=== PATIENT | female | born 1950 | race Two or more races ===

== ENCOUNTER → 2025-02-21 | Emergency (ER) | payer OTHER ==
[~2025-02-21] VITALS: Ht 152.4 cm; Wt 48.5 kg
[~2025-02-21] MED LIST: AMOX1TAB5 PO; BENZONATATE 200 MG CAPSULE PO ONE; BENZONATATE200 M1 PO; BUSPIRONE HCL7.5 MG PO; CEFTRIAXONE SODIUM 1,000 MG VIAL IV ONE; LEVALBUTER0.63 MG/3 IH; LEVALBUTEROL HCL 1.25 MG/3 ML SOLUTION IH ONE; METHYLPREDNISOLONE SOD SUCC 125 MG VIAL IV ONE; METOPROLOL SUCC25 MG PO; MONTELUKAST SODIUM 10 MG TABLET PO ONE; PROTONIX40 MG PO; PROZAC10 MG PO; SINGULAIR10 MG PO; TRILIPIX45 MG PO; WELLBUTRIN SR100 MG PO
[2025-02-21 10:52] LABS: BASO % 0.6 % (0.1-1.2); EOS # 0.15 (0.04-0.54); EOS % 3.1 % (0.7-7.0); HEMATOCRIT 39.1 % (34.1-44.9); LYMPH # 1.84 (1.18-3.74); LYMPH % 38.3 % (19.3-53.1); MONO # 0.38 (0.24-0.82); MONO % 7.9 % (4.7-12.5); NEUT # 2.37 (1.56-6.13); NEUT % 49.5 % (34.0-71.1); PLATELET COUNT 303 K/uL (163-369); RED BLOOD COUNT 4.33 M/uL (3.93-5.22); RED CELL DISTRIBUTION WIDTH 13.3 % (11.6-14.4)
[2025-02-21 10:57] LABS: PH,URINE 5.5 (5.0-8.0); URINE APPEARANCE Clear; URINE BILIRRUBIN Negative (NEGATIVE); URINE BLOOD Negative; URINE COLOR Yellow; URINE GLUCOSE Negative (NEGATIVE); URINE KETONE Negative (NEGATIVE); URINE LEUKOCYTE Trace; URINE NITRATE Negative; URINE PROTEIN Negative (NEGATIVE); URINE UROBILINOGEN 0.2 E.U./dl
[2025-02-21 11:06] LABS: URINE BACTERIA 18.3 uL (0.0-1933); URINE EPITHELIAL CELLS 4.2 uL (0.0-38.8); URINE WBC 4.4 uL (0.0-23.2)
[2025-02-21 11:10] LABS: URINE RBC 0.8 uL (0.0-20.8)
[2025-02-21 11:19] LABS: ALBUMIN 4.4 gm/dL (3.4-5.0); BILIRUBIN TOTAL 0.63 mg/dL (0.3-1.2); CALCIUM 9.7 mg/dL (8.5-10.1); COVID-19 AG NEGATIVE (NEGATIVE); CREATININE SERUM 0.66 mg/dL (0.55-1.02); GFR 87.79; GLOBULINA 2.9 G/DL (2.4-3.5); INFLUENZA A AG NEGATIVE (NEGATIVE); POTASSIUM 4.71 mEq/L (3.5-5.1); TOTAL PROTEIN 7.3 gm/dL (6.4-8.2)
== END | disposition home or self-care (01) ==
LOC: ER 08:33
PROVIDERS: General Practice
DX: R05.9 Cough, unspecified (principal); Z20.822 Contact with and (suspected) exposure to COVID-19
CPT/HCPCS: 36415; 71046; 96365; 99283; J0696; J3490